=== PATIENT | female | born 1955 | race Caucasian/White ===

== ENCOUNTER 2019-03-06 12:59 | Emergency (ER) | payer OTHER, MEDICAID ==
[~2019-03-06] VITALS: Ht 175.3 cm; Wt 47.7 kg
[~2019-03-06 12:59] MED LIST: ALPR0.5T2 PO; BENZ-248 PO; KEP500 PO; RISP1TAB1 PO; SYN.075 PO; TRAZ-343 PO; [UNRECOGNIZED DRUG - CODE] PO
--- NOTE | 2019-03-06 13:23 | NUR ---
PATIENT AMBUALTED TO BED 1 AT THIS TIME.
[2019-03-06 13:24] VITALS: BP 82/45
--- NOTE | 2019-03-06 13:35 | NUR ---
PT BIB CAREGIVER C/O LT FOOT AND 5TH TOE PAIN X 2-3 HOURS WITH RED STREAK UP FOOT, PAIN 7/10, CAP REFILL-IMM, GAIT-WNL, HX-PSYCH,THYROID, GI, SZ,SCHIZO AFFECTIVE NKAPT DENIES N/V/D; SKIN IS INTACT, PINK/WARM/DRY; AAOX4, PERRL, LUNGS CLEAR BL, BREATHING UNLABORED; HR EVEN AND REGULAR, BL PERIPHERAL PULSES PRESENT; BS ACTIVE X4, NO TENDERNESS TO PALPATION. PT DENIES ANY FEVER, CP, SOB, OR COUGH AT THIS TIME; PT STATES 7/10 PAIN AT THIS TIME; VSS; PATIENT POSITIONED FOR COMFORT; HOB ELEVATED; BEDRAILS UP X2; BED DOWN.
[2019-03-06] MEDS ORDERED: NEOMYCIN/POLYMYXIN/BACITRACIN 0.9 GM/1 PKT TP ONE (13:55)
[2019-03-06] MEDS ORDERED: predniSONE 20 MG TAB PO ONE (13:55)
[2019-03-06] MEDS ORDERED: CLINDAMYCIN 150 MG CAP PO ONE (13:55)
--- NOTE | 2019-03-06 14:30 | NUR ---
GOOD PMS, CAP REFILL-IMM POST WOUND CARE
--- NOTE | 2019-03-06 14:49 | NUR ---
Patient discharged with v/s stable. Written and verbal after care instructions given and explained. Patient alert, oriented and verbalized understanding of instructions. Ambulatory with steady gait. All questions addressed prior to discharge. ID band removed. Patient advised to follow up with PMD. Rx of TRAMADOL,BACTROBAN 2% TOPCLINDAMYCIN given. Patient educated on indication of medication including possible reaction and side effects. Opportunity to ask questions provided and answered.
[2019-03-06 14:50] VITALS: BP 96/61
== END 2019-03-06 14:49 | disposition home or self-care (01) ==
LOC: MED 12:59
DX: S90.32XA Contusion of left foot, initial encounter (principal); S90.415A Abrasion, left lesser toe(s), initial encounter; E07.9 Disorder of thyroid, unspecified; F20.9 Schizophrenia, unspecified; Z79.899 Other long term (current) drug therapy; X58.XXXA Exposure to other specified factors, initial encounter; Y93.89 Activity, other specified; Y92.89 Other specified places as the place of occurrence of the external cause; Y99.8 Other external cause status
CPT/HCPCS: 73630; 99284; J7512; Q0092

== ENCOUNTER 2019-08-24 20:05 | Emergency (ER) | payer OTHER, MEDICAID ==
[~2019-08-24] VITALS: Ht 165.1 cm; Wt 52.4 kg
[~2019-08-24 20:05] MED LIST changes: +BENZ-203 PO; -BENZ-248 PO
[2019-08-24 20:12] VITALS: BP 113/78
[2019-08-24] MEDS ORDERED: ACETAMINOPHEN 650 MG/20.3 ML UDC PO ONE (20:15)
--- NOTE | 2019-08-24 20:15 | NUR ---
TO LOBBY A/W BED AMBULATORY
--- NOTE | 2019-08-24 20:22 | NUR ---
PT AMBULATED TO ER BED 3
[2019-08-24] MEDS ORDERED: NACL 0.9% 1,000 ML IV ONE (20:30)
[2019-08-24] MEDS ORDERED: KETOROLAC 30 MG/ML VIAL IVP ONE (20:30)
--- NOTE | 2019-08-24 20:30 | NUR ---
63 Y/O F PRESENTS TO ED WITH C/O FEVER AND FATIGUE X1 DAY. 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 PT HAD FEVER PF 101 AT HOME. +COUGH, PT IS A 2 PACK A DAY SMOKER. PT DENIES N/V/D, CHILLS, ABD PAIN, BODY ACHES. LUNGS CLEAR THROUGHOUT. O2 AT 95% RA. HX OF SEIZURES, LAST SEIZURE OVER 8 YEARS AGO. BEDRAIL X1 UP. WILL CONTINUE TO MONITOR.
--- NOTE | 2019-08-24 20:40 | NUR ---
MELANI-JEWELRY RACKER FOR PT [phone] TO BE CALLED WHEN PT IS UP FOR DISCHARGE.
--- NOTE | 2019-08-24 21:12 | NUR ---
DR. ALVAREZ BEDSIDE EVALUATING PT
[2019-08-24 22:40] VITALS: BP 113/78
--- NOTE | 2019-08-24 22:40 | NUR ---
CALLED MELANI TO NOTIFIY HER THAT PT IS UP FOR DISCHARGE. ETA 10-15 MINUTES.
--- NOTE | 2019-08-24 22:40 | NUR ---
Patient discharged with v/s stable. Written and verbal after care instructions given and explained. Patient alert, oriented and verbalized understanding of instructions. Ambulatory with steady gait. All questions addressed prior to discharge. ID band removed. Patient advised to follow up with PMD. Rx of PREDNISONE AND MOTRIN WAS given. Patient educated on indication of medication including possible reaction and side effects. Opportunity to ask questions provided and answered. PT STATED SHE HAD NO PAIN PRIOR TO D/C 0. FEVER REDUCED TO 99.0 ORAL PRIOR TO D/C
== END 2019-08-24 22:40 | disposition home or self-care (01) ==
LOC: MED 20:05
DX: R50.9 Fever, unspecified (principal); R05 Cough; E07.9 Disorder of thyroid, unspecified; F17.200 Nicotine dependence, unspecified, uncomplicated; Z90.710 Acquired absence of both cervix and uterus; Z79.899 Other long term (current) drug therapy
CPT/HCPCS: 71045; 81002; 96374; 99283; J1885

== ENCOUNTER 2020-02-27 14:00 | Emergency (ER) | payer OTHER, MEDICAID ==
[~2020-02-27] VITALS: Ht 167.6 cm; Wt 57.6 kg
[2020-02-27 14:07] VITALS: BP 104/64
--- NOTE | 2020-02-27 14:09 | NUR ---
PATIENT AMBULATED TO BED 6.
--- NOTE | 2020-02-27 14:11 | NUR ---
64/F [facility]IB [facility] C/O LEFT LATERAL MALLEOLAR PAIN X FEW MINUTES THAT STARTED WHILE WALKING. DENIES INJURY OR FALL. PT STATES THE PAIN MAY BE DUE TO THE "SLIPPERS" SHE WAS WEARING. PT REFUSED TO BE ASSISTED TO BED VIA W/C. AMBULATORY TO BED 06 WITH STEADY GAIT. NO ERYTHEMA, EDEMA, OR DEFORMITY NOTED. SKIN INTACT. PMH: SEIZURE, HYPOTHYROIDISM, TOBACCO ABUSE, AND SCHIZOPHRENIA
--- NOTE | 2020-02-27 14:14 | NUR ---
SAGE ALVAREZ EVALUATING PT AT BEDSIDE
[2020-02-27] MEDS ORDERED: KETOROLAC 30 MG/ML VIAL IM ONE (14:20)
--- NOTE | 2020-02-27 14:33 | NUR ---
xray at bedside
[2020-02-27] MEDS ORDERED: BACITRACIN OINT 500 UNITS/GM PKT TP ONE (15:19)
--- NOTE | 2020-02-27 15:25 | NUR ---
PT LEFT ANKLE WRAPPED WITH 3" IN LANIE WRAP, CMS WNL BEFORE AND AFTER
--- NOTE | 2020-02-27 15:26 | NUR ---
APPLIED BACITRACIN TO PT'S LEFT THUMB DRESSED WITH BANDAID
--- NOTE | 2020-02-27 15:42 | NUR ---
Patient discharged with v/s stable. Written and verbal after care instructions given and explained. Patient alert, oriented and verbalized understanding of instructions. Ambulatory with steady gait. All questions addressed prior to discharge. ID band removed. Patient advised to follow up with PMD. Rx of naprosyn given. Patient educated on indication of medication including possible reaction and side effects. Opportunity to ask questions provided and answered. Accompanied out of ER by caregiver
[2020-02-27 15:44] VITALS: BP 104/64
== END 2020-02-27 15:42 ==
LOC: MED 14:00
DX: S93.402A Sprain of unspecified ligament of left ankle, initial encounter (principal); E07.9 Disorder of thyroid, unspecified; F17.210 Nicotine dependence, cigarettes, uncomplicated; R56.9 Unspecified convulsions; Z79.899 Other long term (current) drug therapy; Z98.890 Other specified postprocedural states; X58.XXXA Exposure to other specified factors, initial encounter; Y93.01 Activity, walking, marching and hiking; Y92.89 Other specified places as the place of occurrence of the external cause; Y99.8 Other external cause status
CPT/HCPCS: 73610; 96372; 99283; J1885; Q0092

== ENCOUNTER 2024-03-16 20:35 | Inpatient (IN) | payer OTHER, MEDICAID ==
[~2024-03-16] VITALS: Ht 157.5 cm; Wt 44.5 kg
[~2024-03-16 20:35] MED LIST changes: -BENZ-203 PO; +BENZ-315 PO
[2024-03-16 20:43] VITALS: BP 97/57; PULSE 95; RESP 16; TEMP 98; O2SAT 98
[2024-03-16] MEDS: NACL 0.9% 1,000 ML IV ONE (21:56)
[2024-03-16 22:10] LABS: BASOPHILS % (AUTO) 0.5 % (0.0-2.0); EOSINOPHILS # (AUTO) 0.1 K/uL (0-0.4); EOSINOPHILS % (AUTO) 1.1 % (0.0-4.0); HEMOGLOBIN 10.8 g/dL (12.0-16.0); LYMPHOCYTES # (AUTO) 2.4 K/uL (2.5-16.5); LYMPHOCYTES % (AUTO) 37.8 % (20.5-51.1); MEAN CORPUSCULAR HEMOGLOBIN 26 pg (27-31); MEAN CORPUSCULAR HGB CONC 33 g/dL (33-37); MEAN CORPUSCULAR VOLUME 78.1 fL (80-94); MONOCYTES # (AUTO) 0.6 K/uL (0.8-1.0); NEUTROPHILS # (AUTO) 3.2 K/uL (1.8-7.7); NEUTROPHILS % (AUTO) 51.6 % (42.2-75.2); PLATELET COUNT (AUTO) 198 K/uL (140-450); RED BLOOD CELL COUNT(AUTO) 4.23 MIL/uL (4.20-5.40); WHITE BLOOD COUNT (AUTO) 6.3 K/uL (4.8-10.8)
[2024-03-16 22:20] LABS: ANION GAP 11.9 (8-16); CALCIUM 8.9 mg/dL (8.5-10.1); CARBON DIOXIDE 25.5 mmol/L (21-32); CREATININE 0.9 mg/dL (0.6-1.3); POTASSIUM 4.4 mmol/L (3.5-5.1)
[2024-03-16 22:50] LABS: CREATINE KINASE, TOTAL 67 U/L (26-192); THYROID STIMULATING HORMONE 0.05 uIU/mL (0.34-3.74)
[2024-03-16 22:51] LABS: ALCOHOL, BLOOD 10 mg/dL (<10)
[2024-03-17] VITALS (7 sets, daily range): BP systolic 136–148; BP diastolic 71–79; PULSE 64–75; RESP 16–18; TEMP 96.8–98.2; O2SAT 96–100
[2024-03-17 01:45] LABS: BILIRUBIN,URINE 1+ (NEGATIVE); BLOOD, URINE NEGATIVE (NEGATIVE); COLOR,URINE YELLOW (YELLOW); LEUKOCYTE ESTERASE ,URINE TRACE (NEGATIVE); NITRITE, URINE POSITIVE (NEGATIVE); PH,URINE 5.5 (5.0-9.0); PROTEIN,URINE 1+ (NEGATIVE); UGLUCOSE NEGATIVE (NEGATIVE)
[2024-03-17 01:51] LABS: APPEARANCE,URINE SLIGHTLY CLOUDY (CLEAR)
[2024-03-17 01:53] LABS: AMPHETAMINE, URINE POSITIVE ng/ml (NEG <=1000); BARBITURATE, URINE NEGATIVE ng/ml (NEG <=200); BENZODIAZEPINE, URINE NEGATIVE ng/mL (NEG <=200); CANNABINOID, URINE NEGATIVE ng/mL (NEG <=50); COCAINE, URINE NEGATIVE ng/mL (NEG <=300)
[2024-03-17 01:54] LABS: OPIATE, URINE NEGATIVE ng/mL (NEG <=2000); PHENCYCLIDINE SCREEN,URINE NEGATIVE ng/mL (NEG <=25)
[2024-03-17 01:57] LABS: BACTERIA,URINE 3+ /HPF (None Seen); ICTOTEST POSITIVE (NEGATIVE); RBC,URINE 0 /HPF (0-5); SQUAMOUS EPITHELIAL CELL,UR 4-10 (MOD) /LPF (0-3 (FEW))
[2024-03-17 01:58] LABS: MUCUS,URINE None Seen /LPF (None Seen)
[2024-03-17] MEDS ORDERED: cefTRIAXone 1,000 MG VIAL ONE (02:33)
[2024-03-17] MEDS: MORPHINE SULFATE 4 MG/ML SYR IVP ONE (08:29)
[2024-03-17] MEDS ORDERED: ONDANSETRON 4 MG/2 ML VIAL IVP PRN (10:00)
[2024-03-17] MEDS ORDERED: ACETAMINOPHEN 325 MG TAB PO PRN (10:00)
[2024-03-17] MEDS ORDERED: HYDROcodone/APAP 5/325 MG 1 TAB TAB PO PRN (10:00)
[2024-03-17] MEDS: NACL 0.9% 1,000 ML IV SCH (10:36)
[2024-03-17] MEDS ORDERED: PIPERACILLIN/TAZOBACTAM 3.375 GM in DEXTROSE 5% 50 ML IV SCH (13:00)
[2024-03-17] MEDS: PIPERACILLIN/TAZOBACTAM 2.25 GM in DEXTROSE 5% 50 ML IV SCH (14:11)
[2024-03-18 04:00] VITALS: BP 132/76; PULSE 70; RESP 18; TEMP 97.4; O2SAT 97
[2024-03-18 05:54] LABS: BASOPHILS % (AUTO) 0.3 % (0.0-2.0); EOSINOPHILS # (AUTO) 0.2 K/uL (0-0.4); EOSINOPHILS % (AUTO) 2.2 % (0.0-4.0); HEMATOCRIT 34.8 % (36-48); HEMOGLOBIN 11.5 g/dL (12.0-16.0); LYMPHOCYTES # (AUTO) 3.4 K/uL (2.5-16.5); MEAN CORPUSCULAR HEMOGLOBIN 26 pg (27-31); MEAN CORPUSCULAR HGB CONC 33 g/dL (33-37); MEAN CORPUSCULAR VOLUME 77.6 fL (80-94); MONOCYTES # (AUTO) 0.5 K/uL (0.8-1.0); MONOCYTES % (AUTO) 7.7 % (1.7-9.3); NEUTROPHILS # (AUTO) 2.7 K/uL (1.8-7.7); NEUTROPHILS % (AUTO) 39.8 % (42.2-75.2); PLATELET COUNT (AUTO) 192 K/uL (140-450); RED BLOOD CELL COUNT(AUTO) 4.49 MIL/uL (4.20-5.40); RED CELL DISTRIBUTION WIDTH 16.6 % (11.6-13.7); WHITE BLOOD COUNT (AUTO) 6.9 K/uL (4.8-10.8)
[2024-03-18 06:00] LABS: ANION GAP 8.4 (8-16); CALCIUM 8.5 mg/dL (8.5-10.1); CARBON DIOXIDE 28.5 mmol/L (21-32); CREATININE 0.6 mg/dL (0.6-1.3); POTASSIUM 4.9 mmol/L (3.5-5.1)
[2024-03-18 08:00] VITALS: BP 144/73; PULSE 60; PULSE 70; RESP 18; TEMP 97; O2SAT 100
[2024-03-18 16:00] VITALS: BP 142/80; PULSE 60; RESP 18; TEMP 98.6; O2SAT 98
[2024-03-18 20:00] VITALS: BP 126/85; PULSE 81; PULSE 89; RESP 18; TEMP 97.8; O2SAT 97; O2SAT 98
[2024-03-18] MEDS: ALPRAZolam 0.5 MG TAB PO SCH (20:28)
[2024-03-18] MEDS: levETIRAcetam 500 MG TAB PO SCH (20:28)
[2024-03-18] MEDS: risperiDONE 1 MG TAB PO SCH (20:28)
[2024-03-19 05:38] LABS: BASOPHILS % (AUTO) 0.3 % (0.0-2.0); EOSINOPHILS # (AUTO) 0.2 K/uL (0-0.4); EOSINOPHILS % (AUTO) 2.1 % (0.0-4.0); HEMATOCRIT 39.3 % (36-48); HEMOGLOBIN 12.8 g/dL (12.0-16.0); LYMPHOCYTES # (AUTO) 4.2 K/uL (2.5-16.5); LYMPHOCYTES % (AUTO) 54.6 % (20.5-51.1); MEAN CORPUSCULAR HEMOGLOBIN 25 pg (27-31); MEAN CORPUSCULAR HGB CONC 33 g/dL (33-37); MEAN CORPUSCULAR VOLUME 77.9 fL (80-94); MONOCYTES # (AUTO) 0.6 K/uL (0.8-1.0); NEUTROPHILS # (AUTO) 2.7 K/uL (1.8-7.7); PLATELET COUNT (AUTO) 223 K/uL (140-450); RED BLOOD CELL COUNT(AUTO) 5.05 MIL/uL (4.20-5.40); WHITE BLOOD COUNT (AUTO) 7.6 K/uL (4.8-10.8)
[2024-03-19 05:48] LABS: CALCIUM 9.1 mg/dL (8.5-10.1); CREATININE 0.7 mg/dL (0.6-1.3)
[2024-03-19] MEDS: LEVOTHYROXINE 0.075 MG TAB PO SCH (06:08)
[2024-03-19 08:00] VITALS: BP 130/76; PULSE 90; RESP 20; TEMP 97.8; O2SAT 98
[2024-03-19] MEDS: traZODone 50 MG TAB PO SCH (09:32)
[2024-03-19] MEDS: BENZTROPINE 1 MG TAB PO SCH (09:47)
[2024-03-19] MEDS ORDERED: LEVO-481 PO (10:31)
[2024-03-19 12:00] VITALS: PULSE 90; RESP 18; O2SAT 98
[2024-03-19 15:24] VITALS: BP 124/76; PULSE 95; RESP 20; TEMP 98.2
[2024-03-19 15:35] VITALS: BP 124/68; PULSE 74; RESP 18; TEMP 98.2; O2SAT 97
== END 2024-03-19 17:00 | disposition home or self-care (01) | DRG 92 ==
LOC: MED 20:49 → MMU 03-17 10:00
PROVIDERS: ADMIT Student in an Organized Health Care Education/Training Program; ATTEND Student in an Organized Health Care Education/Training Program
DX: G92.8 Other toxic encephalopathy (principal); N39.0 Urinary tract infection, site not specified; E03.9 Hypothyroidism, unspecified; F15.90 Other stimulant use, unspecified, uncomplicated; F20.9 Schizophrenia, unspecified; Z79.899 Other long term (current) drug therapy
CPT/HCPCS: 36415; 70450; 71045; 80048; 80305; 81001; 82140; 82550; 83605; 84443; 84484; 85025; 87040; 87081; 87086; 87186; 93005; 96361; 96365; 96375; 97116; 97163-GP; 99285; G0482; J0696; J2270; J2543; J7060; Q0092